=== PATIENT | male | born 1960 | race Caucasian/White ===

== ENCOUNTER → 2020-01-08 | Outpatient (CLI) | payer BC ==
--- NOTE | 2020-01-08 17:11 | Diagnostic Imaging Report ---
Indication: Cough, shortness of breath, history of recent Covid positive Technique: 2 views of the chest Comparison: None Findings: Lungs and pleural spaces are clear. The heart size is normal. The bones are unremarkable. Impression: Negative
== END | disposition home or self-care (01) ==
LOC: RAD 12:02
DX: R05 Cough (principal); R06.02 Shortness of breath; Z86.19 Personal history of other infectious and parasitic diseases; R07.89 Other chest pain
CPT/HCPCS: 71046